=== PATIENT | female | born 1965 | race Caucasian/White ===

== ENCOUNTER 2018-06-21 19:53 | Observation (INO) ==
[2018-06-21] MEDS ORDERED: Nitroglycerin 0.4 MG TAB.SUBL SL ONE (20:08)
[2018-06-21] MEDS ORDERED: Aspirin 81 MG TAB.CHEW PO ONE (20:08)
--- NOTE | 2018-06-21 20:12 | Emergency Department Note ---
Disposition Clinical Impression: Chest pain Qualifiers: Chest pain type: unspecified Qualified Code(s): R07.9 - Chest pain, unspecified Disposition: Admitted As Inpatient Referrals: NONE,PCP [Primary Care Provider] - Time of Disposition: 21:51 General Adult HPI - General Stated complaint: Chest Pain Time Seen by Provider: 06/21/18 20:00 - Related Data Allergies Allergy/AdvReac Type Severity Reaction Status Date / Time acetaminophen [From Percocet] Allergy Difficulty Verified 06/21/18 20:40 Breathing lisinopril Allergy Hives Verified 06/21/18 20:40 Oxycodone [From Percocet] Allergy Difficulty Verified 06/21/18 20:40 Breathing Sulfa (Sulfonamide Allergy Hives Verified 06/21/18 20:40 Antibiotics) Course Vital Signs Temperature 98.3 F 06/21/18 20:10 Pulse Rate 89 06/21/18 20:10 Respiratory Rate 18 06/21/18 20:10 Blood Pressure 164/86 06/21/18 20:10 O2 Sat by Pulse Oximetry 97 06/21/18 20:10 Temperature 98.3 F 06/21/18 20:10 Pulse Rate 77 06/21/18 21:22 Respiratory Rate 20 06/21/18 21:22 Blood Pressure 152/85 06/21/18 21:22 O2 Sat by Pulse Oximetry 99 06/21/18 21:22 Oxygen Delivery Oxygen Delivery Room Air Medical Decision Making - Lab Data Result diagrams: 06/21/18 20:23 06/21/18 20:23 Lab Results 06/21/18 06/21/18 Range/Units 20:23 20:23 WBC 9.5 (4.3-11.1) K/mcL RBC 4.91 (3.82-4.97) M/mcL Hgb 12.9 (11.5-15.4) g/dL Hct 40.9 (35.3-44.9) % MCV 83.3 (83.0-100.0) fL MCH 26.3 L (28.0-33.3) pg MCHC 31.5 L (31.6-35.5) g/dL RDW 15.1 H (11.5-14.5) % Plt Count 385 (140-400) K/mcL MPV 10.8 (9.4-12.4) fL Immature Gran % 0.3 (0-4) % Seg Neutrophils % 55.7 % Lymphocytes % 32.3 % Monocytes % 8.9 % Eosinophils % 2.5 % Basophils % 0.3 % Neutrophils # 5.3 (1.6-8.9) K/mcL Lymphocytes # 3.1 (0.6-4.6) K/mcL Monocytes # 0.9 (0.0-1.3) K/mcL Eosinophils # 0.2 (0.0-0.6) K/mcL Basophils # 0.0 (0.0-0.2) K/mcL Sodium 140 (136-145) mEq/L Potassium 3.6 (3.5-5.1) mEq/L Chloride 105 (98-107) mEq/L Carbon Dioxide 25 (23-29) mEq/L BUN 14 (6-20) mg/dL Creatinine 0.77 (0.60-1.20) mg/dL Est GFR ( Amer) > 60 (> 60) Est GFR (Non-Af Amer) > 60 (> 60) BUN/Creatinine Ratio 18 (6-26) Glucose 100 (70-105) mg/dL Calculated Osmolality 291 (280-300) Calcium 9.7 (8.6-10.3) mg/dL Troponin I < 0.03 (< 0.04) ng/mL Attestation Statement - Attestation Attestation: I examined this patient and my medical decision-making was reviewed with the Resident Physician. I agree with the documented findings, disposition and treatment plan as described except to the extent set forth below. Patient to the ED complaining of chest pain radiating to the left side of her neck and left arm. Nausea. Patient states it started tonight while she was eating dinner. She had an episode of diarrhea as well. Patient does have a history of A. fib. She has had a heart catheterization 3 years ago that showed some blockages that were not amenable to stenting. She still having some discomfort at this time. On exam she appears comfortable with heart regular rate and rhythm and lungs clear. Plan. Cardiac workup. EKG is unremarkable. No ST segment elevations, depressions or T-wave inversions. Cardiac workup and likely admission. Patient's pain resolved with nitroglycerin. Troponin is negative. Patient admitted secondary to risk factors and her heart score 5. Hospitalist accepts. Chest X-Ray 06/21/18 20:08 IMPRESSION: No radiographic evidence of acute cardiopulmonary disease. D/ / Luciano Lee / Luciano Lee Interpreting Provider: Luciano Lee Heart Score - Score History: Highly Suspicious EKG: Normal Age: 45-65 Risk Factors: Equal/Greater than 3 risk factor or history of atherosclerotic disease Troponin: Less than normal limit HEART Score Total: 5
[2018-06-21] MEDS ORDERED: Nitroglycerin 0.4 MG TAB.SUBL SL PRN (20:13)
[2018-06-21] MEDS ORDERED: Ondansetron ODT 4 MG TAB.RAPDIS SL ONE (20:17)
--- NOTE | 2018-06-21 20:24 | Emergency Department Note ---
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 The patient states that she was having dinner and had sudden onset of substernal chest pain radiating into the left chest and left arm that is pressure-like. She describes as a 4/10 pain. Associated with nausea and dyspnea. States that she has nitroglycerin tablets but did not take any because she had to drive here. Patient states that her last heart catheterization was approximately 2 years ago. - Related Data Home Medications Medication Instructions Recorded Confirmed Famotidine [Pepcid] 20 mg PO BID 06/21/18 06/21/18 Ibuprofen 600 PO 06/21/18 Losartan 06/21/18 Plaquenil 06/21/18 Propranolol 06/21/18 Tizanidine HCl 06/21/18 metFORMIN 06/21/18 Allergies Allergy/AdvReac Type Severity Reaction Status Date / Time acetaminophen [From Percocet] Allergy Difficulty Verified 06/21/18 20:40 Breathing lisinopril Allergy Hives Verified 06/21/18 20:40 Oxycodone [From Percocet] Allergy Difficulty Verified 06/21/18 20:40 Breathing Sulfa (Sulfonamide Allergy Hives Verified 06/21/18 20:40 Antibiotics) All systems ED: reviewed and negative except as stated. Review of Systems: As Per HPI Constitutional: Denies: fever, chills Cardiovascular: Reports: chest pain. Denies: palpitations, dyspnea on exertion , edema, syncope, paroxysmal nocturnal dyspnea Respiratory: Reports: dyspnea. Denies: cough, wheezes, hemoptysis Gastrointestinal: Reports: nausea. Denies: abdominal pain, vomiting Genitourinary: Denies: urgency, dysuria Musculoskeletal: Denies: back pain, neck pain Integumentary: Denies: rash Past Medical History - Past Medical History Attestation: Yes The following information was validated with the patient. Physical Exam CONSTITUTIONAL: A&O X 3, in no apparent distress HEAD: Normocephalic; atraumatic EYES: PERRL, no scleral icterus NOSE: The nose is normal in appearance without rhinorrhea NECK: No JVD or distended neck veins RESP: Normal chest excursion with respiration; breath sounds clear and equal bilaterally; no wheezes, rhonchi, or rales CARD: Regular rhythm, without murmurs, rub or gallop ABD: Non-distended; non-tender, soft, without rigidity, rebound or guarding,no pulsatile mass CHEST: No pain with palpation SKIN: Normal for age and race; warm and dry without diaphoresis ; no apparent lesions EXTREMITIES: Pulses are 2 plus and equal times 4 extremities, no peripheral edema or calf muscle pain Course Course Narrative: Plan is times for the patient to undergo in evaluation for her chest pain which will include cardiac workup with troponin, EKG as well as a chest x-ray. She will receive a full dose of aspirin and nitroglycerin trial. EKG is nonischemic at this time. - Reevaluation(s) Reevaluation #1: Patient states nitroglycerin brought her pain from a 5/10 to a 1/10 and then patient refused further doses. Patient will be admitted to the hospital given her HEART score that is moderate. Time: 21:00 Vital Signs Temperature 98.3 F 06/21/18 20:10 Pulse Rate 89 06/21/18 20:10 Respiratory Rate 18 06/21/18 20:10 Blood Pressure 164/86 06/21/18 20:10 O2 Sat by Pulse Oximetry 97 06/21/18 20:10 Temperature 98.3 F 06/21/18 20:10 Pulse Rate 77 06/21/18 21:22 Respiratory Rate 20 06/21/18 21:22 Blood Pressure 152/85 06/21/18 21:22 O2 Sat by Pulse Oximetry 99 06/21/18 21:22 Oxygen Delivery Oxygen Delivery Room Air Medical Decision Making - Medical Records Medical records reviewed: Yes I reviewed the patient's medical records. - Lab Data Lab results reviewed: Yes I reviewed the patient's lab results. Result diagrams: 06/21/18 20:23 06/21/18 20:23 Lab Results 06/21/18 06/21/18 Range/Units 20:23 20:23 WBC 9.5 (4.3-11.1) K/mcL RBC 4.91 (3.82-4.97) M/mcL Hgb 12.9 (11.5-15.4) g/dL Hct 40.9 (35.3-44.9) % MCV 83.3 (83.0-100.0) fL MCH 26.3 L (28.0-33.3) pg MCHC 31.5 L (31.6-35.5) g/dL RDW 15.1 H (11.5-14.5) % Plt Count 385 (140-400) K/mcL MPV 10.8 (9.4-12.4) fL Immature Gran % 0.3 (0-4) % Seg Neutrophils % 55.7 % Lymphocytes % 32.3 % Monocytes % 8.9 % Eosinophils % 2.5 % Basophils % 0.3 % Neutrophils # 5.3 (1.6-8.9) K/mcL Lymphocytes # 3.1 (0.6-4.6) K/mcL Monocytes # 0.9 (0.0-1.3) K/mcL Eosinophils # 0.2 (0.0-0.6) K/mcL Basophils # 0.0 (0.0-0.2) K/mcL Sodium 140 (136-145) mEq/L Potassium 3.6 (3.5-5.1) mEq/L Chloride 105 (98-107) mEq/L Carbon Dioxide 25 (23-29) mEq/L BUN 14 (6-20) mg/dL Creatinine 0.77 (0.60-1.20) mg/dL Est GFR ( Amer) > 60 (> 60) Est GFR (Non-Af Amer) > 60 (> 60) BUN/Creatinine Ratio 18 (6-26) Glucose 100 (70-105) mg/dL Calculated Osmolality 291 (280-300) Calcium 9.7 (8.6-10.3) mg/dL Troponin I < 0.03 (< 0.04) ng/mL TSH 1.967 (0.340-5.600) mcIU/mL - Radiology Data Radiology results reviewed: Yes I reviewed the patient's radiology results. Chest X-Ray 06/21/18 20:08 IMPRESSION: No radiographic evidence of acute cardiopulmonary disease. D/ / Luciano Lee / Luciano Lee Interpreting Provider: Luciano Lee - EKG Data EKG #1 EKG attestation: Yes I reviewed and interpreted this EKG. EKG results narrative: EKG done at 20:04 shows sinus rhythm at a rate of 77 bpm. Normal axis. Intervals within normal limits. No signs of ST elevation, ST depressions or Q waves present. No signs of ischemia.
[2018-06-21 20:56] LABS: Basophils % 0.3 %; Eosinophils # 0.2 K/mcL (0.0-0.6); Eosinophils % 2.5 %; Hematocrit 40.9 % (35.3-44.9); Hemoglobin 12.9 g/dL (11.5-15.4); Immature Granulocytes % 0.3 % (0-4); Lymphocytes # 3.1 K/mcL (0.6-4.6); Lymphocytes % 32.3 %; Mean Corpuscular HGB Conc 31.5 g/dL (31.6-35.5); Mean Corpuscular Hemoglobin 26.3 pg (28.0-33.3); Mean Corpuscular Volume 83.3 fL (83.0-100.0); Mean Platelet Volume 10.8 fL (9.4-12.4); Monocytes # 0.9 K/mcL (0.0-1.3); Monocytes % 8.9 %; Neutrophils # 5.3 K/mcL (1.6-8.9); Platelet Count 385 K/mcL (140-400); Red Blood Count 4.91 M/mcL (3.82-4.97); Red Cell Distribution Width 15.1 % (11.5-14.5); Segmented Neutrophils % 55.7 %
[2018-06-21 21:16] LABS: BUN/Creatinine Ratio 18 (6-26); Blood Urea Nitrogen 14 mg/dL (6-20); Calcium 9.7 mg/dL (8.6-10.3); Carbon Dioxide 25 mEq/L (23-29); Chloride 105 mEq/L (98-107); Glucose 100 mg/dL (70-105); Osmolality,Calculated 291 (280-300); Potassium 3.6 mEq/L (3.5-5.1); Sodium 140 mEq/L (136-145); eGFR For Non-African Americans > 60 (> 60)
[2018-06-21 21:17] LABS: Troponin I < 0.03 ng/mL (< 0.04)
[2018-06-21 22:23] LABS: Thyroid Stimulating Hormone 1.967 mcIU/mL (0.340-5.600)
--- NOTE | 2018-06-21 22:24 | Internal Med History&Physical ---
Date of Encounter: 06/22/18 Time of Encounter: 22:30 Internal Medicine - H&P: HPI Chief complaint: Chest pain Admitted From: Emergency Dept Plans for Post Hospital Care: Home History of present illness: Ms. Washington is a 53 year old female Patient presented to the emergency room with a 2 hour history of chest pain that began while she was eating dinner. Patient states pain radiates to her left arm and left neck. There is associated nausea and diarrhea as well. She drove herself to the hospital. She indicates that on the way to the hospital, she stopped at [employer] to buy a blood pressure cuff as well because she thought that her blood pressure was low, which it was. Her daughter is at bed side and confirms the story. Currently she denies chest pain, feels more like chest pressure. She has a significant history of thyroid storm induced AL 2 years ago, and follow with a frit mixer and burner. She has had some similar events like this recently, and has been undergoing work up with Dr. Olmstead. She had a stress test performed 2 weeks ago which she reports as normal. She was scheduled for echo next week. In the emergency room patient's troponins were undetectable, CBC and BMP were within normal limits. Chest x-ray showed no acute cardiopulmonary disease. EKG was normal sinus rhythm with no ST changes or signs of ischemia. Patient received a dose of nitroglycerin which has relieved her pain at this time. Past Med Surg Social Fam HX - Past Medical History Medical history: hypertension, myocardial infarction, thyroid disease Psychiatric history: no psych history - Social History Smoking Status: Never smoker Smokeless Tobacco Status: No Alcohol use: none Drug use: none - Family History Father Adopted: [place]: [place] Family Member Ethnicity: Non- Living Status: Age at : 62 Hx Family Cardiac Disorders: Yes Hx Family Respiratory Disorders: No Hx Family Cancer: Yes (THYROID CANCER) Hx Family GI Disorders: No Hx Family Genitourinary Disorders: No Hx Family Endocrine Disorder: Yes (DM) Hx Family Musculoskeletal Disorders: No Hx Family Neuromuscular Disorders: No Hx Family Neurologic Disorders: Yes (NEUROPATHY) Hx Family HEENT Disorders: No Hx Family Autoimmune Disorders: No Hx Family Reproductive Disorders: No Hx Family Psychosocial Disorders: No Hx Family Medical Disorders: No Internal Medicine - H&P: Meds Famotidine [Pepcid] 20 mg PO BID 06/21/18 [History] Ibuprofen 600 mg PO BID 06/21/18 [History] Losartan 100 mg PO DAILY 06/21/18 [History] Plaquenil 400 mg PO HS 06/21/18 [History] Propranolol 20 mg PO BID 06/21/18 [History] Tizanidine HCl 2 mg PO HS 06/21/18 [History] metFORMIN 500 mg PO BID 06/21/18 [History] Aspirin 81 mg PO DAILY 06/22/18 [History] Neurontin 300 mg PO TID 06/22/18 [History] 3 Allergy/AdvReac Type Severity Reaction Status Date / Time acetaminophen [From Percocet] Allergy Difficulty Verified 06/21/18 20:40 Breathing lisinopril Allergy Hives Verified 06/21/18 20:40 Oxycodone [From Percocet] Allergy Difficulty Verified 06/21/18 20:40 Breathing Sulfa (Sulfonamide Allergy Hives Verified 06/21/18 20:40 Antibiotics) All Systems PM: A 10-system review of systems was performed and is negative for pertinent findings except as documented above in the HPI. - Constitutional Vitals: Temp Pulse Resp BP Pulse Ox 98.3 F 77 20 152/85 99 06/21/18 20:10 06/21/18 21:22 06/21/18 21:22 06/21/18 21:22 06/21/18 21:22 General appearance: Present: cooperative, A&O X 3, pleasant, no acute distress, answers questions appropriately Exam: As above - Head Head exam: Present: normal inspection - Eye Eye exam: Present: EOMI, normal appearance - Respiratory Respiratory exam: Present: CTAB. Absent: decreased breath sounds, respiratory distress, wheezes - Cardiovascular Cardiovascular exam: Present: RRR. Absent: diastolic murmur, systolic murmur - GI/Abdominal GI/Abdominal exam: Present: normal bowel sounds, soft. Absent: tenderness - Extremities Exam Extremities exam: Present: warm, radial pulses palpable and symmetrical. Absent : calf tenderness, pedal edema, tenderness - Neurological Exam Neurological exam: Present: no focal deficits, strengths equal and symetr throughout. Absent: motor sensory deficit, facial droop, speech deficit - Skin Skin exam: Present: dry, normal color, warm Internal Med - H&P Results - Labs CBC & Chem 7: 06/22/18 04:17 06/22/18 04:17 - Assessment and plan (1) Chest pain Current Visit: Yes Status: Acute Assessment and plan: Troponin negative. History of Thyroid storm induced AL in past. Concerned that this was another AL. Currently chest pain resolved. No previous medical records in our system as patient just [place] here from [place] town. Does follow with a frit mixer and burner, Dr. Olmstead. 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 Echo in AM Qualifiers: Chest pain type: unspecified Qualified Code(s): R07.9 - Chest pain, unspecified (2) History of prediabetes Current Visit: Yes Status: Acute Assessment and plan: Monitor sugars, patient not on insulin at home. Low dose sliding scale insulin PRN (3) Sjogrens syndrome Current Visit: Yes Status: Acute Assessment and plan: Continue home meds, IV fluid hydration. Qualifiers: Qualified Code(s): M35.00 - Sicca syndrome, unspecified (4) Mixed connective tissue disease Current Visit: Yes Status: Acute Assessment and plan: Chronic, continue home meds. (5) History of thyroid storm Current Visit: Yes Status: Acute Assessment and plan: Chronic, continue to monitor. (6) DVT prophylaxis Current Visit: Yes Status: Acute Assessment and plan: SCDs - Time Spent With Patient Total time spent is greater than 50% in coordination of care (as documented) at patient's floor/unit and/or counseling patient: Greater than 35 minutes
[2018-06-21] MEDS ORDERED: Naloxone 0.4 MG/ML INJ IVP PRN (22:57)
[2018-06-21] MEDS ORDERED: Dextrose Gel 15 GM/37.5 ML TUBE PO PRN ×2 (23:00)
[2018-06-21] MEDS ORDERED: *HR* Dextrose 50 % in Water (Syg) 50 ML SYRINGE IVP PRN (23:00)
[2018-06-21] MEDS ORDERED: D5% in Water 1,000 ML IVC PRN (23:00)
[2018-06-21] MEDS: 0.9 % Sodium Chloride 1,000 ML IVC SCH (23:56)
[2018-06-22] MEDS: tiZANidine 4 MG TABLET PO SCH ×2 (02:48→21:21)
[2018-06-22] MEDS: Gabapentin 300 MG CAPSULE PO SCH ×4 (02:48→21:21)
[2018-06-22] MEDS: Ibuprofen 600 MG TABLET PO SCH ×3 (02:49→21:22)
[2018-06-22 04:40] LABS: Hematocrit 35.9 % (35.3-44.9); Mean Corpuscular HGB Conc 31.5 g/dL (31.6-35.5); Mean Corpuscular Hemoglobin 26.3 pg (28.0-33.3); Mean Corpuscular Volume 83.7 fL (83.0-100.0); Mean Platelet Volume 10.7 fL (9.4-12.4); Platelet Count 317 K/mcL (140-400); Red Blood Count 4.29 M/mcL (3.82-4.97); Red Cell Distribution Width 15.1 % (11.5-14.5)
[2018-06-22 04:42] LABS: Hemoglobin 11.3 g/dL (11.5-15.4)
[2018-06-22 05:00] LABS: BUN/Creatinine Ratio 22 (6-26); Blood Urea Nitrogen 15 mg/dL (6-20); Calcium 9.2 mg/dL (8.6-10.3); Carbon Dioxide 25 mEq/L (23-29); Chloride 109 mEq/L (98-107); Glucose 116 mg/dL (70-105); Osmolality,Calculated 292 (280-300); Potassium 3.9 mEq/L (3.5-5.1); Sodium 140 mEq/L (136-145); eGFR For Non-African Americans > 60 (> 60)
[2018-06-22] MEDS: Insulin LISPRO 300 UNITS/3 ML VIAL SQ SCH ×3 (09:09→17:09)
[2018-06-22] MEDS: Aspirin 81 MG TAB.CHEW PO SCH (09:22)
[2018-06-22] MEDS: Famotidine 20 MG TABLET PO SCH ×2 (09:23→15:39)
[2018-06-22] MEDS: 0.9 % Sodium Chloride 1,000 ML IVC SCH (09:28)
--- NOTE | 2018-06-22 09:44 | Internal Med Progress Note ---
Hospitalist Progress Note - Encounter Date of Encounter: 06/22/18 Time of Encounter: 09:42 - Subjective Interval History: Seen and examined at bedside, no acute change in condition overnight. Continued to report some atypical chest pain chest pain worse with range of motion of left upper extremity and to palpation of chest. History of mixed connective tissue disease and Sjogren's. Given history of autoimmune disorder consider costochondritis as the cause of atypical chest pain. Continue with plan of care including echocardiogram. - Exam Vitals: Temp Pulse Resp BP Pulse Ox 98.2 F 69 15 101/56 96 06/22/18 08:10 06/22/18 08:10 06/22/18 08:10 06/22/18 08:10 06/22/18 08:10 Exam: PHYSICAL EXAMINATION: GENERAL: The patient is a well-developed, obese female in mild distress due to pain. She is alert and oriented 3 HEENT: Head is normocephalic and atraumatic. Extraocular muscles are intact. Pupils are equal, round, and reactive to light and accommodation. Nares appeared normal. Oral mucosa is dry without lesions, Posterior pharynx clear of any exudate or lesions. NECK: Supple. No carotid bruits. No lymphadenopathy or thyromegaly. LUNGS: Clear to auscultation. CHEST: Tenderness to palpation along the border of left and right sternum. The redness progresses to left shoulder and left neck. HEART: Regular rate and rhythm, S1, S2 without murmurs rubs or gallops. ABDOMEN: Soft, nontender, and nondistended. Positive bowel sounds. No hepatosplenomegaly was noted. EXTREMITIES: Without any cyanosis, clubbing, rash, lesions or edema. NEUROLOGIC: Cranial nerves II through XII are grossly intact. PSYCHIATRIC: Appropriate affect, denies suicidal or homicidal ideations. SKIN: No ulceration or lesions or induration present, skin warm dry and intact. 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 Chest pain worse with palpation along left and right sternal border, left greater than right. Given recent negative workup was suspicion for ACS however, we will proceed with echocardiogram for further evaluation. Most likely pain is caused by costochondritis given history of autoimmune disorder. We will treat with oral steroids and NSAIDs at this time. Remain on telemetry for further monitoring. (2) Costochondritis Current Visit: Yes Status: Acute Assessment and Plan: History of autoimmune disorders including Sjogren's and mixed connective tissue disease Chronic joint inflammation and pain Severe tenderness along left and right sternal border to palpation. Tenderness greater on left than right. Suspicious for costochondritis given history of mixed connective tissue disorder Continue with NSAIDs Start oral steroids 40 mg by mouth daily (3) History of prediabetes Current Visit: Yes Status: Acute Assessment and Plan: Does not take insulin at this time Continue monitor blood glucose while inpatient Low sliding scale insulin (4) Sjogrens syndrome Current Visit: Yes Status: Acute Assessment and Plan: Per history Continue home medications Continue IV fluid (5) Mixed connective tissue disease Current Visit: Yes Status: Acute Assessment and Plan: Per history Continue home medications Follow-up with seam checker outpatient (6) History of thyroid storm Current Visit: Yes Status: Acute Assessment and Plan: Chronic, continue to monitor, continuous telemetry, TSH within normal limits DVT Prophylaxis: EPCD's - Time Spent with Patient Total time spent is greater than 50% in coordination of care (as documented) at patient's floor/unit and/or counseling patient: less than 15 minutes Plan of Care Discussed with: patient Internal Medicine: Result - Labs CBC & Chem 7: 06/22/18 04:17 06/22/18 04:17 Labs: Short CBC 06/22/18 Range/Units 04:17 WBC 8.2 (4.3-11.1) K/mcL Hgb 11.3 L D (11.5-15.4) g/dL Hct 35.9 (35.3-44.9) % Plt Count 317 (140-400) K/mcL BMP 06/22/18 04:17 Sodium 140 Potassium 3.9 Chloride 109 H Carbon Dioxide 25 BUN 15 Creatinine 0.69 Glucose 116 H Calcium 9.2 Cardiac Enzymes 06/22/18 Range/Units 04:17 Troponin I < 0.03 (< 0.04) ng/mL Consult Discharge Plan - Plan (1) Chest pain Qualifiers: Chest pain type: unspecified Qualified Code(s): R07.9 - Chest pain, unspecified (4) Sjogrens syndrome Qualifiers: Qualified Code(s): M35.00 - Sicca syndrome, unspecified
[2018-06-22] MEDS: predniSONE 20 MG TABLET PO SCH (10:33)
[2018-06-22] MEDS ORDERED: Insulin LISPRO 300 UNITS/3 ML VIAL SQ SCH (21:00)
[2018-06-23] MEDS ORDERED: *HR* Enoxaparin 40 MG/0.4 ML SYRINGE SQ SCH (06:00)
[2018-06-23] MEDS: Famotidine 20 MG TABLET PO SCH (06:07)
[2018-06-23] MEDS: Insulin LISPRO 300 UNITS/3 ML VIAL SQ SCH ×2 (08:22→12:09)
[2018-06-23] MEDS: Aspirin 81 MG TAB.CHEW PO SCH (08:38)
[2018-06-23] MEDS: Ibuprofen 600 MG TABLET PO SCH (08:38)
[2018-06-23] MEDS: Gabapentin 300 MG CAPSULE PO SCH (08:38)
[2018-06-23] MEDS: predniSONE 20 MG TABLET PO SCH (08:38)
[2018-06-23 11:23] VITALS: BP 125/77
--- NOTE | 2018-06-23 12:40 | Discharge Summary ---
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 Chest pain worse with palpation along left and right sternal border, left greater than right. Given recent negative workup was suspicion for ACS however, we will proceed with echocardiogram for further evaluation. Most likely pain is caused by costochondritis given history of autoimmune disorder. We will treat with oral steroids and NSAIDs at this time. Remain on telemetry for further monitoring. 06/23--admitted with chest pain, rule out ACS. Atypical chest pain, worse to palpation. EKG sinus rhythm with no ST-T wave changes concerning for ischemia, serial troponins remain negative. No events noted on telemetry. Attempted to get echocardiogram however, patient declined as she had one approximately 2 weeks ago which she reports as normal. Offered additional inpatient evaluation including stress test and echocardiogram however patient continues to decline reports she will follow with her electric blasting cap assembler. I have explained to the patient that if feel it would be beneficial for further evaluation and that we could transfer her to her electric blasting cap assembler at [facility] however, this she also declines and is requesting to discharge. I explained my concern as well as risks versus benefits of additional evaluation and discharge. I informed the patient that should she discharge without further evaluation she risks further morbidity and/ or the patient verbalizes understanding and wishes to proceed with discharge. She is being discharged in stable condition and was instructed to follow-up with her PCP in 1-2 weeks and to continue to follow-up with her electric blasting cap assembler and sales representative [employer]. She verbalizes understanding and denies any further questions. Additionally, she was instructed to return to the ED should she began to experience shortness of breath, diaphoresis, weakness, fatigue, weight gain, increasing chest pain. Qualifiers: Chest pain type: unspecified Qualified Code(s): R07.9 - Chest pain, unspecified (2) Costochondritis Priority: Secondary Status: Acute Assessment and Plan: History of autoimmune disorders including Sjogren's and mixed connective tissue disease Chronic joint inflammation and pain Severe tenderness along left and right sternal border to palpation. Tenderness greater on left than right. Suspicious for costochondritis given history of mixed connective tissue disorder Continue with NSAIDs Start oral steroids 40 mg by mouth daily; will give a total of 7 days dose f/u with sales representative church furniture outpatient (3) History of prediabetes Priority: Secondary Status: Acute Assessment and Plan: f/u with PCP (4) Sjogrens syndrome Priority: Secondary Status: Acute Qualifiers: Qualified Code(s): M35.00 - Sicca syndrome, unspecified (5) Mixed connective tissue disease Priority: Secondary Status: Acute Assessment and Plan: per hx follow with sales representative [employer] (6) History of thyroid storm Priority: Secondary Status: Acute Assessment and Plan: Chronic, continue to monitor, continuous telemetry, TSH within normal limits Hospital course: Ms. Washington is a 53 year old female who presented with concerns for chest pain. Chest pain appears to be atypical and worse with palpation across the sternal border. Concerns for costochondritis as the patient has a history of mixed connective tissue disease and Sjogren's syndrome; likely autoimmune inflammation. She reports she has had a recent cardiac evaluation including stress test and echocardiogram which were found to be unremarkable. Medical records obtained verifying this. Serial troponins and ECG obtained during this admission. Serial troponins remained less than 0.03, ECG without any ST-T wave changes concerning for ischemia. Low suspicion for ACS however, has been instructed to follow-up with cardiology as previously scheduled. She is being treated with NSAIDs and oral steroids and discharged home. She is to follow-up with her sales representative church [employer] and PCP with 1-2 weeks of discharge. She was offered additional workup and evaluation in the inpatient setting however, declines and wishes to start this time. She is instructed to return to the ED should she have return of chest pain, shortness of breath, diaphoresis, fatigue. She verbalizes understanding denies any further questions at this time. Discharge discussed with: patient, nurse - Time Spent with Patient Total time spent providing and/or coordinating discharge services: Less than 30 minutes - Discharge Medications Prescriptions: predniSONE [PredniSONE] See Taper PO DAILY 7 Days #7 tablet Home Medications: Famotidine [Pepcid] 20 mg PO BID 06/21/18 [History] Hydroxychloroquine Sulfate [Plaquenil] 400 mg PO HS 06/21/18 [History] Ibuprofen [Motrin] 600 mg PO BID 06/21/18 [History] Losartan Potassium [Cozaar] 100 mg PO DAILY 06/21/18 [History] Metformin HCl [Metformin HCl ER] 500 mg PO BID 06/21/18 [History] Propranolol [Inderal] 20 mg PO BID 06/21/18 [History] Tizanidine HCl 2 mg PO HS 06/21/18 [History] Aspirin Enteric Coated [Aspirin EC] 81 mg PO DAILY 06/22/18 [History] Gabapentin [Neurontin] 300 mg PO TID 06/22/18 [History] predniSONE [PredniSONE] See Taper PO DAILY 7 Days #7 tablet 06/23/18 [Rx] Allergies/Adverse Reactions: 3 Allergy/AdvReac Type Severity Reaction Status Date / Time acetaminophen [From Percocet] Allergy Difficulty Verified 06/21/18 20:40 Breathing lisinopril Allergy Hives Verified 06/21/18 20:40 Oxycodone [From Percocet] Allergy Difficulty Verified 06/21/18 20:40 Breathing Sulfa (Sulfonamide Allergy Hives Verified 06/21/18 20:40 Antibiotics) Date of admission: 06/21/18 22:16 Primary care physician: PCP NONE Discharging clinician: Rubin Carrasco Anticipated date of discharge: 06/23/18 - Constitutional Vitals: Temp Pulse Resp BP Pulse Ox 98 F 71 16 125/77 98 06/23/18 11:22 06/23/18 11:22 06/23/18 11:22 06/23/18 11:22 06/23/18 11:22 General appearance: Present: cooperative, A&O X 3, pleasant, no acute distress, answers questions appropriately Exam: PHYSICAL EXAMINATION: GENERAL: The patient is a well-developed, obese female in mild distress due to pain. She is alert and oriented 3 HEENT: Head is normocephalic and atraumatic. Extraocular muscles are intact. Pupils are equal, round, and reactive to light and accommodation. Nares appeared normal. Oral mucosa is dry without lesions, Posterior pharynx clear of any exudate or lesions. NECK: Supple. No carotid bruits. No lymphadenopathy or thyromegaly. LUNGS: Clear to auscultation. CHEST: Tenderness to palpation along the border of left and right sternum. HEART: Regular rate and rhythm, S1, S2 without murmurs rubs or gallops. ABDOMEN: Soft, nontender, and nondistended. Positive bowel sounds. No hepatosplenomegaly was noted. EXTREMITIES: Without any cyanosis, clubbing, rash, lesions or edema. NEUROLOGIC: Cranial nerves II through XII are grossly intact. PSYCHIATRIC: Appropriate affect, denies suicidal or homicidal ideations. SKIN: No ulceration or lesions or induration present, skin warm dry and intact. - Patient Status Disposition: Home, Self-Care Condition: Fair Functional capacity at discharge: independent ambulation Overall status at discharge: patient is progressing back to baseline - Discharge Instructions Instructions: Chest Pain (DC) Follow Up With: NONE,PCP [Primary Care Provider] - Forms: ED Satisfaction Letter - Diet and Activity Activity: increase activity as tolerated, resume usual activities as tolerated Diet: diabetic diet, low fat, low cholesterol, low salt diet - VTE Documentation of Mechanical Device: Graduated compression elastic hosiery
--- NOTE | 2018-06-23 17:24 | Electrocardiograph Report ---
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
== END 2018-06-23 14:02 | disposition home or self-care (01) ==
LOC: EMEROOARM 19:53 → 3BNU 19:53
PROVIDERS: ADMIT Pediatrics; ATTEND Pediatrics

== ENCOUNTER 2020-04-16 23:03 | Observation (INO) ==
[2020-04-17 01:00] LABS: Prothrombin Time 11.3 Seconds (9.4-12.1)
[2020-04-17 01:02] LABS: Alanine Aminotransferase 49 Units/L (7-52); Albumin 4.2 g/dL (3.5-5.7); Albumin/Globulin Ratio 1.4 (1.1-2.2); Alkaline Phosphatase 58 Units/L (34-104); Aspartate Amino Transferase 28 Units/L (13-39); BUN/Creatinine Ratio 22 (6-26); Bilirubin,Direct 0.1 mg/dL (0.0-0.2); Bilirubin,Indirect 0.1 mg/dL (0.0-1.0); Bilirubin,Total 0.2 mg/dL (0.3-1.0); Blood Urea Nitrogen 14 mg/dL (6-20); Calcium 9.2 mg/dL (8.6-10.3); Carbon Dioxide 22 mEq/L (23-29); Chloride 107 mEq/L (98-107); Glucose 92 mg/dL (70-105); Lipase 24 Units/L (11-82); Osmolality,Calculated 288 (280-300); Potassium 3.6 mEq/L (3.5-5.1); Sodium 139 mEq/L (136-145); Total Protein 7.2 g/dL (6.4-8.9); eGFR For African Americans > 60 (> 60); eGFR For Non-African Americans > 60 (> 60)
[2020-04-17 01:03] LABS: Activated Partial Thrombo Time 32.2 Seconds (26.0-36.0)
[2020-04-17 01:03] LABS: Troponin I < 0.03 ng/mL (< 0.04)
[2020-04-17 01:10] LABS: Basophils % 0.3 %; Eosinophils # 0.1 K/mcL (0.0-0.6); Eosinophils % 1.1 %; Hematocrit 40.4 % (35.3-44.9); Immature Granulocytes % 0.3 % (0-4); Immature Platelets 3.8 % (1.1-6.1); Lymphocytes # 2.2 K/mcL (0.6-4.6); Lymphocytes % 30.7 %; Mean Corpuscular HGB Conc 32.2 g/dL (31.6-35.5); Mean Corpuscular Hemoglobin 29.1 pg (28.0-33.3); Mean Corpuscular Volume 90.4 fL (83.0-100.0); Mean Platelet Volume 11.2 fL (9.4-12.4); Monocytes # 0.7 K/mcL (0.0-1.3); Monocytes % 9.1 %; Neutrophils # 4.2 K/mcL (1.6-8.9); Platelet Count 277 K/mcL (140-400); Red Blood Count 4.47 M/mcL (3.82-4.97); Red Cell Distribution Width 13.3 % (11.5-14.5); Segmented Neutrophils % 58.5 %; White Blood Count 7.2 K/mcL (4.3-11.1)
[2020-04-17 02:27] LABS: Bilirubin,Urine Negative (Negative); Blood,Urine Trace (Negative); Clarity,Urine Clear (Clear); Color,Urine Dark-Yellow (Yellow); Glucose,Urine (UA) Normal (Normal); Ketones,Urine Negative (Negative); Leukocyte Esterase,Urine Negative (Negative); Mucus,Urine Few per lpf (None-Few); Nitrite,Urine Negative (Negative); Protein,Urine 50 mg/dL (Neg-Trace); Specific Gravity,Urine 1.027 (1.010-1.025); Squamous Epithelial Cell,Urine Few per hpf (None-Few); Urobilinogen,Urine Normal (Normal)
[2020-04-17] MEDS ORDERED: Isovue-370 500 ML BOTTLE IVP ONE (03:55)
[2020-04-17] MEDS ORDERED: 0.9 % Sodium Chloride 1,000 ML IV ONE (04:20)
[2020-04-17] MEDS ORDERED: Azithromycin 500 MG in 0.9 % Sodium Chloride 250 ML IVPB ONE (06:04)
[2020-04-17] MEDS ORDERED: cefTRIAXone 1,000 MG in 0.9 % Sodium Chloride Mini Bag 100 ML IVPB ONE (06:04)
[2020-04-17] MEDS ORDERED: Acetaminophen 325 MG TABLET PO PRN (06:20)
[2020-04-17] MEDS ORDERED: Loratadine 10 MG TABLET PO STA (08:25)
[2020-04-17] MEDS ORDERED: Ondansetron 4 MG/2 ML VIAL IVP PRN (08:25)
[2020-04-17 09:14] LABS: Adenovirus Not Detected (Not Detect); Bordetella Pertussis Not Detected (Not Detect); Chlamydophila pneumoniae Not Detected (Not Detect); Coronavirus 229E Not Detected (Not Detect); Coronavirus HKU1 Not Detected (Not Detect); Coronavirus NL63 Not Detected (Not Detect); Coronavirus OC43 Not Detected (Not Detect); Human Metapneumovirus Not Detected (Not Detect); Human Rhinovirus/Enterovirus Not Detected (Not Detect); Influenza A Subtype 2009 H1 Not Detected (Not Detect); Influenza B Not Detected (Not Detect); Mycoplasma pneumoniae Not Detected (Not Detect); Parainfluenza Virus 1 Not Detected (Not Detect); Parainfluenza Virus 2 Not Detected (Not Detect); Parainfluenza Virus 3 Not Detected (Not Detect); Parainfluenza Virus 4 Not Detected (Not Detect); Respiratory Syncytial Virus Not Detected (Not Detect)
[2020-04-17 09:16] LABS: SARS-CoV-2 DETECTED (Not Detect)
[2020-04-17] MEDS: dexAMETHasone 4 MG TABLET PO SCH (10:20)
[2020-04-17] MEDS: Ibuprofen 600 MG TABLET PO SCH ×2 (14:24→20:56)
[2020-04-17] MEDS: Gabapentin 300 MG CAPSULE PO SCH ×2 (14:24→20:56)
[2020-04-17] MEDS: Fluticasone Propionate Nasal 50 MCG/SPRAY BOTTLE NS SCH (15:14)
[2020-04-17] MEDS ORDERED: tiZANidine 4 MG TABLET PO PRN (17:36)
[2020-04-17] MEDS: Budesonide/Formoterol 80/4.5 1 PUFF INH IH SCH (20:17)
[2020-04-18 06:18] LABS: Hematocrit 41.9 % (35.3-44.9); Hemoglobin 13.2 g/dL (11.5-15.4); Immature Granulocytes % 0.6 % (0-4); Lymphocytes # 1.3 K/mcL (0.6-4.6); Lymphocytes % 26.6 %; Mean Corpuscular HGB Conc 31.5 g/dL (31.6-35.5); Mean Corpuscular Hemoglobin 27.8 pg (28.0-33.3); Mean Corpuscular Volume 88.2 fL (83.0-100.0); Mean Platelet Volume 10.6 fL (9.4-12.4); Monocytes # 0.5 K/mcL (0.0-1.3); Neutrophils # 3.1 K/mcL (1.6-8.9); Platelet Count 328 K/mcL (140-400); Red Blood Count 4.75 M/mcL (3.82-4.97); Red Cell Distribution Width 13.3 % (11.5-14.5); Segmented Neutrophils % 62.8 %
[2020-04-18 06:37] LABS: Alanine Aminotransferase 42 Units/L (7-52); Albumin 4.5 g/dL (3.5-5.7); Albumin/Globulin Ratio 1.5 (1.1-2.2); Alkaline Phosphatase 61 Units/L (34-104); Aspartate Amino Transferase 18 Units/L (13-39); BUN/Creatinine Ratio 25 (6-26); Bilirubin,Total 0.2 mg/dL (0.3-1.0); Blood Urea Nitrogen 16 mg/dL (6-20); Calcium 9.1 mg/dL (8.6-10.3); Carbon Dioxide 21 mEq/L (23-29); Chloride 110 mEq/L (98-107); Globulin 3.1 g/dL (2.4-3.5); Glucose 204 mg/dL (70-105); Osmolality,Calculated 299 (280-300); Potassium 3.9 mEq/L (3.5-5.1); Sodium 141 mEq/L (136-145); Total Protein 7.6 g/dL (6.4-8.9); eGFR For African Americans > 60 (> 60); eGFR For Non-African Americans > 60 (> 60)
[2020-04-18] MEDS ORDERED: Azithromycin 500 MG in 0.9 % Sodium Chloride 250 ML IVPB SCH (07:00)
[2020-04-18] MEDS: Gabapentin 300 MG CAPSULE PO SCH (07:18)
[2020-04-18] MEDS: dexAMETHasone 4 MG TABLET PO SCH (07:18)
[2020-04-18] MEDS: Ibuprofen 600 MG TABLET PO SCH (07:18)
[2020-04-18 07:32] VITALS: BP 136/91
[2020-04-18] MEDS: Budesonide/Formoterol 80/4.5 1 PUFF INH IH SCH (08:26)
[2020-04-18] MEDS: Fluticasone Propionate Nasal 50 MCG/SPRAY BOTTLE NS SCH (08:37)
[2020-04-18] MEDS ORDERED: Aspirin Enteric Coated 81 MG Tablet PO SCH (09:00)
[2020-04-18] MEDS ORDERED: cefTRIAXone 1,000 MG in Water for inj. (sterile) 10 ML IVP SCH (09:00)
== END 2020-04-18 11:25 | disposition home or self-care (01) ==
LOC: 2NENU 23:03 → EMEROOARM 23:03 → SUATTDRO 04-17 06:38 → 2NENU 04-17 08:10
PROVIDERS: ADMIT Internal Medicine; ATTEND Family Medicine

== ENCOUNTER 2020-04-24 16:52 | Inpatient (IN) ==
[2020-04-24 17:29] LABS: Basophils % 0.1 %; Hematocrit 37.2 % (35.3-44.9); Hemoglobin 11.8 g/dL (11.5-15.4); Immature Granulocytes % 0.8 % (0-4); Lymphocytes # 1.6 K/mcL (0.6-4.6); Lymphocytes % 9.7 %; Mean Corpuscular HGB Conc 31.7 g/dL (31.6-35.5); Mean Corpuscular Hemoglobin 27.6 pg (28.0-33.3); Mean Corpuscular Volume 87.1 fL (83.0-100.0); Mean Platelet Volume 9.8 fL (9.4-12.4); Monocytes # 0.5 K/mcL (0.0-1.3); Neutrophils # 14.3 K/mcL (1.6-8.9); Platelet Count 323 K/mcL (140-400); Red Blood Count 4.27 M/mcL (3.82-4.97); Red Cell Distribution Width 13.9 % (11.5-14.5); Segmented Neutrophils % 86.4 %; White Blood Count 16.5 K/mcL (4.3-11.1)
[2020-04-24 17:38] LABS: INR 1.2; Prothrombin Time 13.3 Seconds (9.4-12.1)
[2020-04-24 17:40] LABS: Activated Partial Thrombo Time 30.6 Seconds (26.0-36.0)
[2020-04-24 17:54] LABS: Alanine Aminotransferase 63 Units/L (7-52); Albumin 3.7 g/dL (3.5-5.7); Albumin/Globulin Ratio 1.1 (1.1-2.2); Alkaline Phosphatase 67 Units/L (34-104); Aspartate Amino Transferase 57 Units/L (13-39); BUN/Creatinine Ratio 23 (6-26); Bilirubin,Direct 0.1 mg/dL (0.0-0.2); Bilirubin,Indirect 0.3 mg/dL (0.0-1.0); Bilirubin,Total 0.4 mg/dL (0.3-1.0); Blood Urea Nitrogen 16 mg/dL (6-20); Calcium 8.8 mg/dL (8.6-10.3); Carbon Dioxide 22 mEq/L (23-29); Chloride 106 mEq/L (98-107); Globulin 3.3 g/dL (2.4-3.5); Glucose 126 mg/dL (70-105); Magnesium 1.9 mg/dL (1.6-2.6); Osmolality,Calculated 287 (280-300); Phosphorous 3.2 mg/dL (2.7-4.5); Sodium 137 mEq/L (136-145); Troponin I < 0.03 ng/mL (< 0.04); eGFR For African Americans > 60 (> 60); eGFR For Non-African Americans > 60 (> 60)
[2020-04-24] MEDS ORDERED: Isovue-370 500 ML BOTTLE IVP ONE (18:06)
[2020-04-24] MEDS ORDERED: cefTRIAXone 1,000 MG in 0.9 % Sodium Chloride Mini Bag 100 ML IVPB ONE (19:11)
[2020-04-24] MEDS ORDERED: Azithromycin 500 MG in 0.9 % Sodium Chloride 250 ML IVPB ONE (19:11)
[2020-04-24] MEDS ORDERED: Naloxone 0.4 MG/ML INJ IVP PRN (20:24)
[2020-04-24 21:31] LABS: Bilirubin,Urine Negative (Negative); Blood,Urine Negative (Negative); Clarity,Urine Clear (Clear); Color,Urine Colorless (Yellow); Glucose,Urine (UA) Normal (Normal); Ketones,Urine Negative (Negative); Leukocyte Esterase,Urine Negative (Negative); Nitrite,Urine Negative (Negative); Protein,Urine Trace mg/dL (Neg-Trace); Specific Gravity,Urine > 1.030 (1.010-1.025); Urobilinogen,Urine Normal (Normal)
[2020-04-24] MEDS: Dexamethasone 4 MG/ML VIAL IVP SCH (22:52)
[2020-04-24] MEDS ORDERED: tiZANidine 4 MG TABLET PO PRN (23:46)
[2020-04-25 05:11] LABS: Basophils % 0.1 %; Hematocrit 39.9 % (35.3-44.9); Hemoglobin 12.4 g/dL (11.5-15.4); Immature Granulocytes % 1.7 % (0-4); Lymphocytes # 1.6 K/mcL (0.6-4.6); Lymphocytes % 11.4 %; Mean Corpuscular HGB Conc 31.1 g/dL (31.6-35.5); Mean Corpuscular Hemoglobin 27.6 pg (28.0-33.3); Mean Corpuscular Volume 88.7 fL (83.0-100.0); Mean Platelet Volume 10.1 fL (9.4-12.4); Monocytes # 0.3 K/mcL (0.0-1.3); Monocytes % 2.4 %; Neutrophils # 11.5 K/mcL (1.6-8.9); Platelet Count 375 K/mcL (140-400); Red Cell Distribution Width 13.8 % (11.5-14.5); Segmented Neutrophils % 84.4 %; White Blood Count 13.6 K/mcL (4.3-11.1)
[2020-04-25 05:20] LABS: INR 1.2; Prothrombin Time 13.3 Seconds (9.4-12.1)
[2020-04-25 05:33] LABS: Alanine Aminotransferase 58 Units/L (7-52); Albumin 3.9 g/dL (3.5-5.7); Albumin/Globulin Ratio 1.1 (1.1-2.2); Alkaline Phosphatase 67 Units/L (34-104); Aspartate Amino Transferase 33 Units/L (13-39); BUN/Creatinine Ratio 24 (6-26); Bilirubin,Total 0.3 mg/dL (0.3-1.0); Blood Urea Nitrogen 18 mg/dL (6-20); Calcium 8.8 mg/dL (8.6-10.3); Carbon Dioxide 21 mEq/L (23-29); Chloride 106 mEq/L (98-107); Globulin 3.5 g/dL (2.4-3.5); Glucose 181 mg/dL (70-105); Osmolality,Calculated 294 (280-300); Phosphorous 3.6 mg/dL (2.7-4.5); Potassium 3.9 mEq/L (3.5-5.1); Sodium 139 mEq/L (136-145); Total Protein 7.4 g/dL (6.4-8.9); eGFR For African Americans > 60 (> 60); eGFR For Non-African Americans > 60 (> 60)
[2020-04-25] MEDS ORDERED: Ondansetron 4 MG/2 ML VIAL IVP PRN (05:43)
[2020-04-25] MEDS ORDERED: *HR* Heparin 5,000 UNIT/ML VIAL SQ SCH (06:00)
[2020-04-25] MEDS ORDERED: Vancomycin 1,750 MG in 0.9 % Sodium Chloride 250 ML IVPB SCH (08:00)
[2020-04-25] MEDS: Budesonide/Formoterol 80/4.5 1 PUFF INH IH SCH ×2 (08:23→19:51)
[2020-04-25 08:52] LABS: Estimated Average Glucose 146 mg/dl; Hemoglobin A1C 6.7 %
[2020-04-25] MEDS ORDERED: cefTRIAXone 1,000 MG in Water for inj. (sterile) 10 ML IVP SCH (09:00)
[2020-04-25] MEDS ORDERED: Doxycycline 100 MG in 0.9 % Sodium Chloride Mini Bag 100 ML IVPB SCH (09:00)
[2020-04-25] MEDS: Piperacillin/Tazobactam 3.375 GM in 0.9 % Sodium Chloride Mini Bag 100 ML IVPB SCH ×3 (09:24→23:51)
[2020-04-25] MEDS: Aspirin Enteric Coated 81 MG Tablet PO SCH (09:28)
[2020-04-25] MEDS: Dexamethasone 4 MG/ML VIAL IVP SCH (09:28)
[2020-04-25] MEDS ORDERED: Fluconazole 150 MG TABLET PO ONE (10:50)
[2020-04-25] MEDS ORDERED: Furosemide 20 MG/2 ML VIAL IVP ONE (12:11)
[2020-04-25] MEDS ORDERED: *HR* HYDROcodone/Acet 5/325 mg TABLET PO PRN ×3 (12:27→14:28)
[2020-04-25 13:08] LABS: C-Reactive Protein 169 mg/L (Less than 10)
[2020-04-25 13:23] LABS: Ferritin 153 ng/mL (10-120)
[2020-04-25 13:48] LABS: Adenovirus Not Detected (Not Detect); Bordetella Pertussis Not Detected (Not Detect); Chlamydophila pneumoniae Not Detected (Not Detect); Coronavirus 229E Not Detected (Not Detect); Coronavirus HKU1 Not Detected (Not Detect); Coronavirus NL63 Not Detected (Not Detect); Coronavirus OC43 Not Detected (Not Detect); Human Metapneumovirus Not Detected (Not Detect); Human Rhinovirus/Enterovirus Not Detected (Not Detect); Influenza A Subtype 2009 H1 Not Detected (Not Detect); Influenza B Not Detected (Not Detect); Mycoplasma pneumoniae Not Detected (Not Detect); Parainfluenza Virus 1 Not Detected (Not Detect); Parainfluenza Virus 2 Not Detected (Not Detect); Parainfluenza Virus 3 Not Detected (Not Detect); Parainfluenza Virus 4 Not Detected (Not Detect); Respiratory Syncytial Virus Not Detected (Not Detect)
[2020-04-25 13:50] LABS: SARS-CoV-2 DETECTED (Not Detect)
[2020-04-25] MEDS ORDERED: *HR* Enoxaparin 30 MG/0.3 ML SYRINGE SQ ONE (14:06)
[2020-04-25] MEDS ORDERED: Furosemide 40 MG/4 ML VIAL IVP SCH (14:45)
[2020-04-25] MEDS: Gabapentin 300 MG CAPSULE PO SCH ×2 (15:46→21:39)
[2020-04-25] MEDS: Doxycycline 100 MG CAPSULE PO SCH (15:48)
[2020-04-25] MEDS: Furosemide 20 MG/2 ML VIAL IVP SCH (16:54)
[2020-04-25] MEDS ORDERED: Azithromycin 500 MG in D5% in Water 250 ML IVPB SCH (21:00)
[2020-04-25] MEDS: Loratadine 10 MG TABLET PO SCH (21:39)
[2020-04-25] MEDS: Fluticasone Propionate Nasal 50 MCG/SPRAY BOTTLE NS SCH (23:52)
[2020-04-26] MEDS: *HR* HYDROcodone/Acet 5/325 mg TABLET PO PRN ×2 (02:33→12:07)
[2020-04-26] MEDS: *HR* Enoxaparin 40 MG/0.4 ML SYRINGE SQ SCH (05:31)
[2020-04-26 06:16] LABS: Hematocrit 36.6 % (35.3-44.9); Hemoglobin 11.6 g/dL (11.5-15.4); Mean Corpuscular HGB Conc 31.7 g/dL (31.6-35.5); Mean Corpuscular Hemoglobin 28.4 pg (28.0-33.3); Mean Corpuscular Volume 89.7 fL (83.0-100.0); Platelet Count 387 K/mcL (140-400); Red Blood Count 4.08 M/mcL (3.82-4.97); Red Cell Distribution Width 13.7 % (11.5-14.5); White Blood Count 15.9 K/mcL (4.3-11.1)
[2020-04-26 06:28] LABS: BUN/Creatinine Ratio 29 (6-26); Blood Urea Nitrogen 20 mg/dL (6-20); Calcium 8.6 mg/dL (8.6-10.3); Carbon Dioxide 23 mEq/L (23-29); Chloride 105 mEq/L (98-107); Glucose 122 mg/dL (70-105); Magnesium 2.2 mg/dL (1.6-2.6); Osmolality,Calculated 292 (280-300); Potassium 4.1 mEq/L (3.5-5.1); Sodium 139 mEq/L (136-145); eGFR For African Americans > 60 (> 60); eGFR For Non-African Americans > 60 (> 60)
[2020-04-26] MEDS: Budesonide/Formoterol 80/4.5 1 PUFF INH IH SCH ×2 (08:03→19:52)
[2020-04-26] MEDS: Aspirin Enteric Coated 81 MG Tablet PO SCH (08:30)
[2020-04-26] MEDS: Doxycycline 100 MG CAPSULE PO SCH ×2 (08:30→20:54)
[2020-04-26] MEDS: Gabapentin 300 MG CAPSULE PO SCH ×3 (08:30→20:54)
[2020-04-26] MEDS: Piperacillin/Tazobactam 3.375 GM in 0.9 % Sodium Chloride Mini Bag 100 ML IVPB SCH ×3 (08:31→23:40)
[2020-04-26] MEDS: Furosemide 20 MG/2 ML VIAL IVP SCH (08:31)
[2020-04-26] MEDS: Loratadine 10 MG TABLET PO SCH (08:32)
[2020-04-26] MEDS: Dexamethasone 4 MG/ML VIAL IVP SCH (09:14)
[2020-04-26] MEDS: Fluticasone Propionate Nasal 50 MCG/SPRAY BOTTLE NS SCH ×2 (09:15→20:55)
[2020-04-26] MEDS: polyethylene glycoL 3350 17 GM POWD.PACK PO SCH (12:18)
[2020-04-26] MEDS: GuaiFENesin Liq 200 MG/10 ML UDC PO PRN (20:54)
[2020-04-27 04:50] LABS: Hematocrit 38.3 % (35.3-44.9); Mean Corpuscular HGB Conc 31.3 g/dL (31.6-35.5); Mean Corpuscular Hemoglobin 28.3 pg (28.0-33.3); Mean Corpuscular Volume 90.3 fL (83.0-100.0); Mean Platelet Volume 9.8 fL (9.4-12.4); Platelet Count 431 K/mcL (140-400); Red Blood Count 4.24 M/mcL (3.82-4.97); Red Cell Distribution Width 13.7 % (11.5-14.5); White Blood Count 17.3 K/mcL (4.3-11.1)
[2020-04-27 05:05] LABS: BUN/Creatinine Ratio 30 (6-26); Blood Urea Nitrogen 21 mg/dL (6-20); Calcium 8.9 mg/dL (8.6-10.3); Carbon Dioxide 24 mEq/L (23-29); Chloride 105 mEq/L (98-107); Glucose 102 mg/dL (70-105); Osmolality,Calculated 289 (280-300); Potassium 4.1 mEq/L (3.5-5.1); Sodium 138 mEq/L (136-145); eGFR For African Americans > 60 (> 60); eGFR For Non-African Americans > 60 (> 60)
[2020-04-27] MEDS: *HR* Enoxaparin 40 MG/0.4 ML SYRINGE SQ SCH (06:39)
[2020-04-27] MEDS: Budesonide/Formoterol 80/4.5 1 PUFF INH IH SCH ×3 (07:25→19:39)
[2020-04-27] MEDS: Gabapentin 300 MG CAPSULE PO SCH ×3 (09:04→22:04)
[2020-04-27] MEDS: Loratadine 10 MG TABLET PO SCH (09:04)
[2020-04-27] MEDS: Dexamethasone 4 MG/ML VIAL IVP SCH (09:05)
[2020-04-27] MEDS: Aspirin Enteric Coated 81 MG Tablet PO SCH (09:05)
[2020-04-27] MEDS: Doxycycline 100 MG CAPSULE PO SCH ×2 (09:05→22:04)
[2020-04-27] MEDS: GuaiFENesin Liq 200 MG/10 ML UDC PO PRN (09:05)
[2020-04-27] MEDS: Furosemide 20 MG/2 ML VIAL IVP SCH (09:06)
[2020-04-27] MEDS: Piperacillin/Tazobactam 3.375 GM in 0.9 % Sodium Chloride Mini Bag 100 ML IVPB SCH (09:06)
[2020-04-27] MEDS: Fluticasone Propionate Nasal 50 MCG/SPRAY BOTTLE NS SCH ×2 (09:07→22:10)
[2020-04-27] MEDS: polyethylene glycoL 3350 17 GM POWD.PACK PO SCH (09:07)
[2020-04-27] MEDS ORDERED: *HR* LORazepam 2 MG/ML VIAL IVP ONE (10:32)
[2020-04-27] MEDS: *HR* LORazepam 2 MG/ML VIAL IVP PRN ×2 (10:55→22:05)
[2020-04-27] MEDS: Ibuprofen 600 MG TABLET PO SCH ×2 (15:35→22:10)
[2020-04-27 18:10] LABS: Complement C3 175 mg/dL (87-200)
[2020-04-28 04:10] LABS: ABG Base Excess 1 mEq/L (-2 to 3); ABG HCO3 24 mEq/L (21-27); ABG Oxygen Saturation 95 % (95-98); ABG PCO2 34 mmHg (35-45); ABG PH 7.46 pH Units (7.32-7.45); ABG PO2 68 mmHg (85-104); ABG TCO2 25 mEq/L (20-26)
[2020-04-28] MEDS: *HR* Enoxaparin 40 MG/0.4 ML SYRINGE SQ SCH (06:11)
[2020-04-28 06:52] LABS: Hematocrit 39.1 % (35.3-44.9); Hemoglobin 12.2 g/dL (11.5-15.4); Mean Corpuscular HGB Conc 31.2 g/dL (31.6-35.5); Mean Corpuscular Hemoglobin 28.5 pg (28.0-33.3); Mean Corpuscular Volume 91.4 fL (83.0-100.0); Mean Platelet Volume 9.5 fL (9.4-12.4); Platelet Count 428 K/mcL (140-400); Red Blood Count 4.28 M/mcL (3.82-4.97); Red Cell Distribution Width 13.7 % (11.5-14.5); White Blood Count 16.1 K/mcL (4.3-11.1)
[2020-04-28 07:12] LABS: BUN/Creatinine Ratio 37 (6-26); Blood Urea Nitrogen 28 mg/dL (6-20); Carbon Dioxide 27 mEq/L (23-29); Chloride 104 mEq/L (98-107); Glucose 87 mg/dL (70-105); Osmolality,Calculated 293 (280-300); Potassium 3.8 mEq/L (3.5-5.1); Sodium 139 mEq/L (136-145); eGFR For African Americans > 60 (> 60); eGFR For Non-African Americans > 60 (> 60)
[2020-04-28] MEDS: Budesonide/Formoterol 80/4.5 1 PUFF INH IH SCH ×2 (07:23→19:49)
[2020-04-28] MEDS: Doxycycline 100 MG CAPSULE PO SCH ×2 (08:24→20:02)
[2020-04-28] MEDS: Aspirin Enteric Coated 81 MG Tablet PO SCH (08:24)
[2020-04-28] MEDS: polyethylene glycoL 3350 17 GM POWD.PACK PO SCH (08:24)
[2020-04-28] MEDS: Gabapentin 300 MG CAPSULE PO SCH ×3 (08:24→20:02)
[2020-04-28] MEDS: Ibuprofen 600 MG TABLET PO SCH (08:24)
[2020-04-28] MEDS: Loratadine 10 MG TABLET PO SCH (08:24)
[2020-04-28] MEDS: Dexamethasone 4 MG/ML VIAL IVP SCH (08:24)
[2020-04-28] MEDS: Furosemide 20 MG/2 ML VIAL IVP SCH ×2 (08:26→20:03)
[2020-04-28] MEDS: Fluticasone Propionate Nasal 50 MCG/SPRAY BOTTLE NS SCH ×2 (08:45→20:06)
[2020-04-28] MEDS: Piperacillin/Tazobactam 3.375 GM in 0.9 % Sodium Chloride Mini Bag 100 ML IVPB SCH ×3 (11:59→23:35)
[2020-04-28] MEDS: *HR* HYDROcodone/Acet 5/325 mg TABLET PO PRN (20:14)
[2020-04-28] MEDS ORDERED: Bisacodyl 10 MG RECTAL SUPPOSITORY RC ONE (23:05)
[2020-04-28] MEDS: *HR* LORazepam 2 MG/ML VIAL IVP PRN (23:34)
[2020-04-29 02:15] LABS: Hematocrit 38.4 % (35.3-44.9); Hemoglobin 12.2 g/dL (11.5-15.4); Mean Corpuscular HGB Conc 31.8 g/dL (31.6-35.5); Mean Corpuscular Hemoglobin 28.6 pg (28.0-33.3); Mean Corpuscular Volume 89.9 fL (83.0-100.0); Mean Platelet Volume 9.8 fL (9.4-12.4); Platelet Count 407 K/mcL (140-400); Red Blood Count 4.27 M/mcL (3.82-4.97); Red Cell Distribution Width 13.5 % (11.5-14.5); White Blood Count 15.7 K/mcL (4.3-11.1)
[2020-04-29 02:25] LABS: BUN/Creatinine Ratio 41 (6-26); Blood Urea Nitrogen 26 mg/dL (6-20); Calcium 8.9 mg/dL (8.6-10.3); Carbon Dioxide 23 mEq/L (23-29); Chloride 102 mEq/L (98-107); Glucose 119 mg/dL (70-105); Osmolality,Calculated 290 (280-300); Potassium 3.9 mEq/L (3.5-5.1); Sodium 137 mEq/L (136-145); eGFR For African Americans > 60 (> 60); eGFR For Non-African Americans > 60 (> 60)
[2020-04-29] MEDS: Sennosides/Docusate Sodium TABLET PO SCH ×3 (03:44→21:38)
[2020-04-29] MEDS: *HR* Enoxaparin 40 MG/0.4 ML SYRINGE SQ SCH (06:05)
[2020-04-29] MEDS: Budesonide/Formoterol 80/4.5 1 PUFF INH IH SCH ×2 (07:32→22:41)
[2020-04-29] MEDS: Piperacillin/Tazobactam 3.375 GM in 0.9 % Sodium Chloride Mini Bag 100 ML IVPB SCH ×2 (08:16→17:28)
[2020-04-29] MEDS: Loratadine 10 MG TABLET PO SCH (08:18)
[2020-04-29] MEDS: Dexamethasone 4 MG/ML VIAL IVP SCH (08:18)
[2020-04-29] MEDS: Doxycycline 100 MG CAPSULE PO SCH ×2 (08:18→21:37)
[2020-04-29] MEDS: Aspirin Enteric Coated 81 MG Tablet PO SCH (08:18)
[2020-04-29] MEDS: Furosemide 20 MG/2 ML VIAL IVP SCH ×2 (08:18→21:38)
[2020-04-29] MEDS: polyethylene glycoL 3350 17 GM POWD.PACK PO SCH (08:18)
[2020-04-29] MEDS: Gabapentin 300 MG CAPSULE PO SCH ×3 (08:18→21:37)
[2020-04-29] MEDS: Fluticasone Propionate Nasal 50 MCG/SPRAY BOTTLE NS SCH ×2 (08:20→21:38)
[2020-04-29] MEDS ORDERED: 0.9 % Sodium Chloride 250 ML ONE (13:17)
[2020-04-29] MEDS ORDERED: methylPREDNISolone 125 MG/2 ML VIAL IVP ONE (15:23)
[2020-04-29] MEDS ORDERED: Famotidine 20 MG/2 ML VIAL IVP ONE (15:24)
[2020-04-29] MEDS ORDERED: methylPREDNISolone 125 MG/2 ML VIAL ONE (15:25)
[2020-04-29] MEDS ORDERED: DiphenhydraMINE CREAM 28.4 GM TUBE TP PRN (17:00)
[2020-04-29] MEDS: *HR* LORazepam 2 MG/ML VIAL IVP PRN (21:36)
[2020-04-29 23:12] LABS: Bilirubin,Urine Negative (Negative); Blood,Urine Negative (Negative); Clarity,Urine Clear (Clear); Color,Urine Colorless (Yellow); Glucose,Urine (UA) Normal (Normal); Ketones,Urine Negative (Negative); Leukocyte Esterase,Urine Negative (Negative); Nitrite,Urine Negative (Negative); PH,Urine 6.5 pH Units (5.0-8.0); Protein,Urine Negative (Neg-Trace); Specific Gravity,Urine 1.009 (1.010-1.025); Urobilinogen,Urine Normal (Normal)
[2020-04-29 23:19] LABS: RBC,Urine 0-3 per hpf (0-3); WBC,Urine 0-3 per hpf (0-3)
[2020-04-30] MEDS: *HR* Enoxaparin 40 MG/0.4 ML SYRINGE SQ SCH (04:47)
[2020-04-30 05:01] LABS: Hematocrit 40.7 % (35.3-44.9); Hemoglobin 12.7 g/dL (11.5-15.4); Mean Corpuscular HGB Conc 31.2 g/dL (31.6-35.5); Mean Corpuscular Hemoglobin 27.6 pg (28.0-33.3); Mean Corpuscular Volume 88.5 fL (83.0-100.0); Mean Platelet Volume 9.5 fL (9.4-12.4); Platelet Count 530 K/mcL (140-400); Red Cell Distribution Width 13.2 % (11.5-14.5); White Blood Count 16.5 K/mcL (4.3-11.1)
[2020-04-30 05:21] LABS: BUN/Creatinine Ratio 41 (6-26); Blood Urea Nitrogen 27 mg/dL (6-20); Calcium 9.7 mg/dL (8.6-10.3); Carbon Dioxide 27 mEq/L (23-29); Chloride 102 mEq/L (98-107); Glucose 125 mg/dL (70-105); Osmolality,Calculated 293 (280-300); Potassium 3.7 mEq/L (3.5-5.1); Sodium 138 mEq/L (136-145); eGFR For African Americans > 60 (> 60); eGFR For Non-African Americans > 60 (> 60)
[2020-04-30 07:49] VITALS: BP 122/71
[2020-04-30] MEDS: Budesonide/Formoterol 80/4.5 1 PUFF INH IH SCH (07:59)
[2020-04-30] MEDS: Dexamethasone 4 MG/ML VIAL IVP SCH (08:48)
[2020-04-30] MEDS: Fluticasone Propionate Nasal 50 MCG/SPRAY BOTTLE NS SCH (08:49)
[2020-04-30] MEDS: Gabapentin 300 MG CAPSULE PO SCH ×2 (08:49→14:51)
[2020-04-30] MEDS: Loratadine 10 MG TABLET PO SCH (08:49)
[2020-04-30] MEDS: Sennosides/Docusate Sodium TABLET PO SCH (08:49)
[2020-04-30] MEDS: Aspirin Enteric Coated 81 MG Tablet PO SCH (08:49)
[2020-04-30] MEDS: Furosemide 20 MG/2 ML VIAL IVP SCH (08:49)
[2020-04-30] MEDS: polyethylene glycoL 3350 17 GM POWD.PACK PO SCH (08:50)
[2020-04-30] MEDS ORDERED: Ibuprofen 600 MG TABLET PO ONE (14:41)
== END 2020-04-30 18:56 | disposition home or self-care (01) | DRG 137 ==
LOC: 2NENU 16:52 → EMEROOARM 16:52 → SUATTDRO 19:53 → 2NENU 20:48
PROVIDERS: ADMIT Internal Medicine; ATTEND Internal Medicine

== ENCOUNTER 2020-10-11 10:13 | Observation (INO) ==
[2020-10-11] MEDS ORDERED: Isovue-370 500 ML BOTTLE IVP ONE (11:08)
[2020-10-11 11:41] LABS: Basophils % 0.3 %; Eosinophils # 0.1 K/mcL (0.0-0.6); Eosinophils % 1.4 %; Hematocrit 37.2 % (35.3-44.9); Hemoglobin 11.8 g/dL (11.5-15.4); Immature Granulocytes % 0.2 % (0-4); Lymphocytes # 2.5 K/mcL (0.6-4.6); Lymphocytes % 27.4 %; Mean Corpuscular HGB Conc 31.7 g/dL (31.6-35.5); Mean Corpuscular Hemoglobin 28.2 pg (28.0-33.3); Monocytes # 0.8 K/mcL (0.0-1.3); Monocytes % 8.8 %; Neutrophils # 5.7 K/mcL (1.6-8.9); Platelet Count 383 K/mcL (140-400); Red Blood Count 4.18 M/mcL (3.82-4.97); Red Cell Distribution Width 14.9 % (11.5-14.5); Segmented Neutrophils % 61.9 %; White Blood Count 9.1 K/mcL (4.3-11.1)
[2020-10-11] MEDS ORDERED: *HR* LORazepam 2 MG/ML VIAL IVP ONE ×3 (11:51→15:11)
[2020-10-11] MEDS ORDERED: *HR* LORazepam 2 MG/ML VIAL ONE (11:57)
[2020-10-11] MEDS ORDERED: Ondansetron 4 MG/2 ML VIAL IVP ONE (12:04)
[2020-10-11 12:11] LABS: Alanine Aminotransferase 21 Units/L (7-52); Albumin 4.2 g/dL (3.5-5.7); Albumin/Globulin Ratio 1.4 (1.1-2.2); Alkaline Phosphatase 50 Units/L (34-104); Aspartate Amino Transferase 15 Units/L (13-39); BUN/Creatinine Ratio 17 (6-26); Bilirubin,Total 0.4 mg/dL (0.3-1.0); Blood Urea Nitrogen 11 mg/dL (6-20); Calcium 9.4 mg/dL (8.6-10.3); Carbon Dioxide 23 mEq/L (23-29); Chloride 108 mEq/L (98-107); Globulin 2.9 g/dL (2.4-3.5); Glucose 104 mg/dL (70-105); Osmolality,Calculated 294 (280-300); Potassium 3.4 mEq/L (3.5-5.1); Sodium 142 mEq/L (136-145); Total Protein 7.1 g/dL (6.4-8.9); Troponin I < 0.03 ng/mL (< 0.04); eGFR For African Americans > 60 (> 60); eGFR For Non-African Americans > 60 (> 60)
[2020-10-11] MEDS ORDERED: Ondansetron 4 MG/2 ML VIAL ONE (12:22)
[2020-10-11] MEDS ORDERED: Naloxone 0.4 MG/ML INJ IVP PRN (13:50)
[2020-10-11] MEDS ORDERED: Gabapentin 300 MG CAPSULE PO PRN (13:52)
[2020-10-11] MEDS ORDERED: tiZANidine 4 MG TABLET PO PRN (13:52)
[2020-10-11] MEDS ORDERED: Furosemide 20 MG TABLET PO PRN (13:52)
[2020-10-11] MEDS ORDERED: Acetaminophen 325 MG TABLET PO PRN (13:52)
[2020-10-11] MEDS: *HR* Heparin 5,000 UNIT/ML VIAL SQ SCH ×2 (14:46→23:06)
[2020-10-11 18:46] LABS: Bilirubin,Urine Negative (Negative); Blood,Urine Negative (Negative); Clarity,Urine Clear (Clear); Color,Urine Light-Yellow (Yellow); Glucose,Urine (UA) Normal (Normal); Ketones,Urine Negative (Negative); Leukocyte Esterase,Urine Negative (Negative); Nitrite,Urine Negative (Negative); Protein,Urine Negative (Neg-Trace); Specific Gravity,Urine > 1.030 (1.010-1.025); Urobilinogen,Urine Normal (Normal)
[2020-10-11] MEDS: Budesonide/Formoterol 80/4.5 1 PUFF INH IH SCH (20:40)
[2020-10-12] MEDS ORDERED: Phenylephrine Nasal 0.25% 15 ML BOTTLE NS ONE (02:14)
[2020-10-12 04:13] LABS: Estimated Average Glucose 140 mg/dl; Hemoglobin A1C 6.5 %
[2020-10-12 04:22] LABS: BUN/Creatinine Ratio 24 (6-26); Blood Urea Nitrogen 14 mg/dL (6-20); Calcium 9.7 mg/dL (8.6-10.3); Carbon Dioxide 24 mEq/L (23-29); Chloride 108 mEq/L (98-107); Glucose 104 mg/dL (70-105); Magnesium 1.9 mg/dL (1.6-2.6); Osmolality,Calculated 295 (280-300); Phosphorous 4.2 mg/dL (2.7-4.5); Potassium 3.7 mEq/L (3.5-5.1); Sodium 142 mEq/L (136-145); eGFR For African Americans > 60 (> 60); eGFR For Non-African Americans > 60 (> 60)
[2020-10-12] MEDS: *HR* Heparin 5,000 UNIT/ML VIAL SQ SCH (05:45)
[2020-10-12] MEDS: Budesonide/Formoterol 80/4.5 1 PUFF INH IH SCH (08:21)
[2020-10-12] MEDS ORDERED: FLU Vac QV 20-21 (6Month+)/PF 0.5 ML SYRINGE IM ONE (10:14)
[2020-10-12 10:57] VITALS: BP 122/76
== END 2020-10-12 11:30 | disposition home or self-care (01) ==
LOC: 3NENU 10:13 → EMEROOARM 10:13 → SUATTDRO 13:53 → 3NENU 14:47
PROVIDERS: ADMIT Internal Medicine; ATTEND Internal Medicine